=== PATIENT | female | born 1995 | race Caucasian/White ===

== ENCOUNTER 2016-11-07 00:22 | Inpatient (IN) | payer MEDICAID, OTHER ==
[~2016-11-07] VITALS: Ht 157.5 cm; Wt 86.6 kg
[2016-11-07] MEDS ORDERED: LR 1,000 ML IV SCH ×3 (00:48→16:44)
[2016-11-07 00:59] VITALS: BP 115/68; PULSE 84; RESP 18; TEMP 97.9
[2016-11-07] MEDS ORDERED: NALBUPHINE HCL 10 MG/ML AMP IVP PRN ×2 (01:00→15:45)
[2016-11-07] MEDS ORDERED: TERBUTALINE SULFATE 1 MG/ML VIAL SUBCUT ONE (01:00)
[2016-11-07] MEDS: OXYTOCIN/NORMAL SALINE 1,000 ML IV SCH (01:10)
[2016-11-07 01:56] LABS: BASOPHILS % (AUTO) 0.2 % (0.0-2.0); EOSINOPHILS # (AUTO) 0.1 K/uL (0.0-0.4); HEMATOCRIT 28.6 % (36-48); HEMOGLOBIN 9.4 g/dL (12.0-16.0); LYMPHOCYTES # (AUTO) 2.4 K/uL (1.0-5.5); LYMPHOCYTES % (AUTO) 21.5 % (20.5-51.5); MEAN CORPUSCULAR HEMOGLOBIN 28 pg (27-31); MEAN CORPUSCULAR HGB CONC 33 % (32-36); MEAN CORPUSCULAR VOLUME 87 fL (79.0-98.0); MONOCYTES % (AUTO) 9.1 % (1.7-9.3); NEUTROPHILS # (AUTO) 7.5 K/uL (1.8-7.7); NEUTROPHILS % (AUTO) 68.2 % (40.0-70.0); PLATELET COUNT (AUTO) 215 K/uL (130-430); RED BLOOD CELL COUNT(AUTO) 3.31 MIL/uL (4.2-6.2); RED CELL DISTRIBUTION WIDTH 13.1 % (9.0-15.0)
[2016-11-07] MEDS ORDERED: fentaNYL CITRATE/PF 100 MCG/2 ML AMP IVP ONE (13:45)
[2016-11-07] MEDS ORDERED: FENT2mCg/mL-ROPIVA0.2%/NS EPID 150 ML EP SCH (13:45)
[2016-11-07] MEDS ORDERED: ROPIVACAINE 40 MG/20 ML AMP EP ONE (13:49)
[2016-11-07] MEDS ORDERED: GLYCOPYRROLATE 0.2 MG/ML VIAL ONE (14:00)
[2016-11-07] MEDS ORDERED: LR 1,000 ML IV.SOLN IV ONE (14:00)
[2016-11-07] MEDS ORDERED: NS IRRIG SOLN 1000 ML IR ONE (14:00)
[2016-11-07] MEDS ORDERED: OXYTOCIN 10 UNIT/ML VIAL ONE (14:00)
[2016-11-07] MEDS ORDERED: MORPHINE SULFATE 10MG/10ML PF AMP ONE (14:00)
[2016-11-07] MEDS ORDERED: CEFAZOLIN 2 GM IVPB PREMIX 50 ML IV ONE (15:20)
[2016-11-07] MEDS ORDERED: DIPHENHYDRAMINE INJ 50 MG/ML VIAL IVP PRN (15:45)
[2016-11-07] MEDS ORDERED: HYDROmorphone 1 MG INJ. 1 MG/ML AMPUL IVP PRN ×2 (15:45)
[2016-11-07] MEDS ORDERED: MEPERIDINE HCL/PF 25 MG/ML DISP.SYRIN IVP PRN ×2 (15:45)
[2016-11-07] MEDS ORDERED: KETOROLAC TROMETHAMINE 30 MG VIAL IVP PRN ×2 (15:45)
[2016-11-07] MEDS ORDERED: HYDROmorphone 2 MG/ML VIAL IVP PRN ×2 (15:45)
[2016-11-07] MEDS ORDERED: ONDANSETRON HCL 4 MG/2 ML VIAL IVP PRN ×2 (15:45)
[2016-11-07] MEDS ORDERED: NALOXONE HCL 0.4 MG/ML AMP (NARCAN) IVP PRN (15:45)
[2016-11-07] MEDS ORDERED: OXYTOCIN/NORMAL SALINE 1,000 ML IV ONE (16:44)
[2016-11-07] MEDS ORDERED: OXYCODONE/ACETAMINOPHEN 5-325 TABLET PO PRN (16:45)
[2016-11-07] MEDS ORDERED: SIMETHICONE 80 MG TAB.CHEW PO PRN (16:45)
[2016-11-07] MEDS ORDERED: BISACODYL 10 MG/SUPPOSITORY RC PRN (16:45)
[2016-11-07] MEDS ORDERED: DOCUSATE SODIUM 100 MG CAPSULE PO PRN (16:45)
[2016-11-07] MEDS ORDERED: RHO(D) IMMUNE GLOBULIN/MALTOSE 1500 UNITS/1.3 ML (WINHRO) IM PRN (16:45)
[2016-11-07] MEDS ORDERED: SENNOSIDES/DOCUSATE SODIUM 1 TAB TABLET(SENOKOT-S) PO PRN (16:45)
[2016-11-07] MEDS ORDERED: LANOLIN 7 GM OINT. TP PRN (16:45)
[2016-11-07] MEDS ORDERED: MEASLES,MUMPS&RUBELLA VACC/PF 12500 UNIT/0.5 ML VIAL SUBQ PRN (16:45)
[2016-11-07] MEDS ORDERED: ACETAMINOPHEN 325 MG TABLET PO PRN (16:45)
[2016-11-07] MEDS ORDERED: ANUSOL 1 EA SUPP.RECT (PREPARATION H) RC PRN (16:45)
[2016-11-07 16:57] VITALS: BP 111/71
[2016-11-07 20:07] LABS: BARBITURATE, URINE NEGATIVE (NEG <=200); BENZODIAZEPINE, URINE NEGATIVE (NEG <=150); CANNABINOID, URINE NEGATIVE (NEG <=50); COCAINE, URINE NEGATIVE (NEG <=150); METHAMPHETAMINES SCREEN,URINE NEGATIVE (NEG <=500); OPIATE, URINE NEGATIVE (NEG <=100); PHENCYCLIDINE SCREEN,URINE NEGATIVE (NEG <=25); UR TRICYCLIC ANTIDEPRESSANTS NEGATIVE (NEG <=300); URINE AMPHETAMINE NEGATIVE (NEG <=500); URINE METHADONE NEGATIVE (NEG <=200); URINE OXYCODONE SCREEN NEGATIVE (NEG <=100); URINE PROPOXYPHENE SCREEN NEGATIVE (NEG <=300)
[2016-11-07] MEDS ORDERED: TEMAZEPAM 15 MG CAPSULE PO PRN (21:00)
[2016-11-07] MEDS ORDERED: KETOROLAC TROMETHAMINE 30 MG VIAL IVP ONE (21:45)
[2016-11-08] MEDS: IBUPROFEN 600 MG TABLET PO SCH ×4 (06:15→23:34)
[2016-11-08 08:18] LABS: BASOPHILS % (AUTO) 0.3 % (0.0-2.0); EOSINOPHILS # (AUTO) 0.1 K/uL (0.0-0.4); EOSINOPHILS % (AUTO) 1.2 % (0.0-4.0); HEMATOCRIT 24.6 % (36-48); HEMOGLOBIN 8.1 g/dL (12.0-16.0); LYMPHOCYTES # (AUTO) 1.7 K/uL (1.0-5.5); LYMPHOCYTES % (AUTO) 16.8 % (20.5-51.5); MEAN CORPUSCULAR HEMOGLOBIN 29 pg (27-31); MEAN CORPUSCULAR HGB CONC 33 % (32-36); MEAN CORPUSCULAR VOLUME 87 fL (79.0-98.0); MONOCYTES # (AUTO) 0.6 K/uL (0.0-1.0); MONOCYTES % (AUTO) 6.2 % (1.7-9.3); NEUTROPHILS % (AUTO) 75.5 % (40.0-70.0); PLATELET COUNT (AUTO) 189 K/uL (130-430); RED BLOOD CELL COUNT(AUTO) 2.82 MIL/uL (4.2-6.2); RED CELL DISTRIBUTION WIDTH 13.4 % (9.0-15.0); WHITE BLOOD COUNT (AUTO) 10.4 K/uL (4.8-10.8)
[2016-11-08] MEDS: OXYCODONE/ACETAMINOPHEN 5-325 TABLET PO PRN ×2 (10:45→16:57)
[2016-11-09] MEDS: OXYTOCIN/NORMAL SALINE 1,000 ML IV SCH (02:44)
[2016-11-09] MEDS ORDERED: CITRIC ACID/SODIUM CITRATE 30 ML UDC PO ONE (02:45)
[2016-11-09] MEDS: OXYCODONE/ACETAMINOPHEN 5-325 TABLET PO PRN (04:18)
[2016-11-09] MEDS: IBUPROFEN 600 MG TABLET PO SCH ×2 (06:16→13:18)
== END 2016-11-09 15:15 | disposition home or self-care (01) | DRG 766 ==
LOC: SPU 00:22
PROVIDERS: ADMIT Obstetrics & Gynecology; ATTEND Obstetrics & Gynecology
PROC: 3E0S3BZ Introduction of Anesthetic Agent into Epidural Space, Percutaneous Approach (ICD-10-PCS; 2016-11-07)
PROC: 00HU33Z Insertion of Infusion Device into Spinal Canal, Percutaneous Approach (ICD-10-PCS; 2016-11-07)
PROC: 10D00Z1 Extraction of Products of Conception, Low, Open Approach (ICD-10-PCS; principal; 2016-11-07 16:00)
DX: O33.9 Maternal care for disproportion, unspecified (principal); Z37.0 Single live birth; O77.0 Labor and delivery complicated by meconium in amniotic fluid; Z3A.39 39 weeks gestation of pregnancy
CPT/HCPCS: 36415; 80307; 85025; 86886; 86900; 86901; 94760; J2274; J2590; J3490; J7120

== ENCOUNTER 2018-07-24 10:00 | Inpatient (IN) | payer OTHER, MEDICAID ==
[~2018-07-24] VITALS: Ht 154.9 cm; Wt 92.1 kg
[2018-07-24] MEDS ORDERED: LR 1,000 ML IV ONE (10:08)
[2018-07-24] MEDS ORDERED: METOCLOPRAMIDE HCL 10 MG/2 ML VIAL IVP ONE (10:15)
[2018-07-24] MEDS ORDERED: CEFAZOLIN 2 GM IVPB PREMIX 50 ML IV ONE (10:15)
[2018-07-24] MEDS ORDERED: CITRIC ACID/SODIUM CITRATE 30 ML UDC PO ONE (10:15)
[2018-07-24 10:31] LABS: BASOPHILS # (AUTO) 0.1 K/uL (0.0-0.2); BASOPHILS % (AUTO) 0.6 % (0.0-2.0); EOSINOPHILS % (AUTO) 0.4 % (0.0-4.0); HEMATOCRIT 32.4 % (36-48); HEMOGLOBIN 10.5 g/dL (12.0-16.0); LYMPHOCYTES % (AUTO) 22.7 % (20.5-51.5); MEAN CORPUSCULAR HEMOGLOBIN 28 pg (27-31); MEAN CORPUSCULAR HGB CONC 33 % (32-36); MEAN CORPUSCULAR VOLUME 87 fL (79.0-98.0); MONOCYTES # (AUTO) 0.6 K/uL (0.0-1.0); MONOCYTES % (AUTO) 6.7 % (1.7-9.3); NEUTROPHILS # (AUTO) 6.3 K/uL (1.8-7.7); NEUTROPHILS % (AUTO) 69.6 % (40.0-70.0); PLATELET COUNT (AUTO) 218 K/uL (130-430); RED BLOOD CELL COUNT(AUTO) 3.74 MIL/uL (4.2-6.2); RED CELL DISTRIBUTION WIDTH 14.4 % (9.0-15.0)
[2018-07-24] MEDS ORDERED: LR 1,000 ML IV SCH ×2 (13:06→13:31)
[2018-07-24] MEDS ORDERED: KETOROLAC TROMETHAMINE 60 MG/2 ML VIAL IM PRN (13:15)
[2018-07-24] MEDS ORDERED: ONDANSETRON HCL 4 MG/2 ML VIAL IVP PRN (13:15)
[2018-07-24] MEDS ORDERED: METOCLOPRAMIDE HCL 10 MG/2 ML VIAL IVP PRN (13:15)
[2018-07-24] MEDS ORDERED: DIPHENHYDRAMINE INJ 50 MG/ML VIAL IM PRN (13:15)
[2018-07-24] MEDS ORDERED: MORPHINE SULFATE 10MG/10ML PF AMP SP SCH (13:15)
[2018-07-24] MEDS ORDERED: NALOXONE HCL 0.4 MG/ML AMP (NARCAN) IVP PRN (13:15)
[2018-07-24] MEDS ORDERED: OXYTOCIN/0.9 % SODIUM CHLORIDE 1,000 ML IV ONE (13:31)
[2018-07-24] MEDS ORDERED: LR 1,000 ML IV.SOLN IV ONE (13:40)
[2018-07-24] MEDS ORDERED: MIDAZOLAM HCL 5 MG/ML VIAL (VERSED) IV ONE (13:40)
[2018-07-24] MEDS ORDERED: ONDANSETRON HCL 4 MG/2 ML VIAL ONE (13:40)
[2018-07-24] MEDS ORDERED: NS IRRIG SOLN 1000 ML IR ONE (13:40)
[2018-07-24] MEDS ORDERED: MORPHINE SULFATE 10MG/10ML PF AMP ONE (13:40)
[2018-07-24] MEDS ORDERED: OXYTOCIN/0.9 % SODIUM CHLORIDE 20 UNITS/1,000 ML BAG IV ONE (13:40)
[2018-07-24 13:41] VITALS: BP_SYST 103
[2018-07-24] MEDS ORDERED: OXYCODONE/ACETAMINOPHEN 5-325 TABLET PO PRN ×2 (13:45)
[2018-07-24] MEDS ORDERED: BISACODYL 10 MG/SUPPOSITORY RC PRN (13:45)
[2018-07-24] MEDS ORDERED: MORPHINE SULFATE 10 MG/ML VIAL IVP PRN (13:45)
[2018-07-24] MEDS ORDERED: ANUSOL 1 EA SUPP.RECT (PREPARATION H) RC PRN (13:45)
[2018-07-24] MEDS ORDERED: LANOLIN 7 GM OINT. TP PRN (13:45)
[2018-07-24] MEDS ORDERED: SENNOSIDES/DOCUSATE SODIUM 1 TAB TABLET(SENOKOT-S) PO PRN (13:45)
[2018-07-24] MEDS ORDERED: TEMAZEPAM 15 MG CAPSULE PO PRN (21:00)
[2018-07-25] MEDS: IBUPROFEN 600 MG TABLET PO SCH ×4 (06:00→23:41)
[2018-07-25 06:06] LABS: BASOPHILS % (AUTO) 0.3 % (0.0-2.0); EOSINOPHILS % (AUTO) 0.5 % (0.0-4.0); HEMATOCRIT 25.4 % (36-48); HEMOGLOBIN 8.4 g/dL (12.0-16.0); LYMPHOCYTES # (AUTO) 2.1 K/uL (1.0-5.5); LYMPHOCYTES % (AUTO) 26.6 % (20.5-51.5); MEAN CORPUSCULAR HEMOGLOBIN 29 pg (27-31); MEAN CORPUSCULAR HGB CONC 33 % (32-36); MEAN CORPUSCULAR VOLUME 87 fL (79.0-98.0); MONOCYTES # (AUTO) 0.6 K/uL (0.0-1.0); MONOCYTES % (AUTO) 7.1 % (1.7-9.3); NEUTROPHILS # (AUTO) 5.3 K/uL (1.8-7.7); NEUTROPHILS % (AUTO) 65.5 % (40.0-70.0); PLATELET COUNT (AUTO) 178 K/uL (130-430); RED CELL DISTRIBUTION WIDTH 14.8 % (9.0-15.0)
[2018-07-25] MEDS: DOCUSATE SODIUM 100 MG CAPSULE PO PRN ×2 (06:15→12:12)
[2018-07-25] MEDS: SIMETHICONE 80 MG TAB.CHEW PO PRN (12:12)
[2018-07-26] MEDS: IBUPROFEN 600 MG TABLET PO SCH ×2 (05:45→11:51)
[2018-07-26] MEDS: SIMETHICONE 80 MG TAB.CHEW PO PRN (11:52)
== END 2018-07-26 13:30 | disposition home or self-care (01) | DRG 788 ==
LOC: SPU 10:00
PROVIDERS: ADMIT Obstetrics & Gynecology; ATTEND Obstetrics & Gynecology
PROC: 10D00Z1 Extraction of Products of Conception, Low, Open Approach (ICD-10-PCS; principal; 2018-07-24 12:30)
DX: O34.211 Maternal care for low transverse scar from previous cesarean delivery (principal); Z3A.39 39 weeks gestation of pregnancy; Z37.0 Single live birth; O99.02 Anemia complicating childbirth; D64.9 Anemia, unspecified
CPT/HCPCS: 36415; 85025; 86592; 86886; 86900; 86901; 94760; J0690; J2250; J2274; J2405; J2590; J7120